=== PATIENT | female | born 1955 | race Caucasian/White ===

== ENCOUNTER 2019-05-07 08:16 | Emergency (ER) | payer BC ==
--- OUTSIDE RECORDS SUMMARY | 2019-05-07 08:21 | XMS REPORT | Continuity of Care Document ---
:1955 External Reference #:[id number] Author Name JEREMY Coelho (transmitted by agent of provider Rachid Salvador) Address [address] [address] Care Team Providers Name Role Phone Chacha Reddy MD - Internal Care Team Information Log Data Technician [phone] Medicine Problems Active Problems Provider Date Polyp of nasal cavity and/or nasal JEREMY Coelho Onset: 02/19 sinus Chronic sinusitis JEREMY Coelho Onset: 08/14/2018 Allergic rhinitis Rachid Salvador MD Onset: 08/27/2015 Allergic rhinitis due to pollen Rachid Salvador MD Onset: 08/27/2015 Social History Type Date Description Comments Sex Unknown Tobacco Use Start: Unknown Never Smoked Cigarettes Smoking Status Reviewed: 05/02/19 Never Smoked Cigarettes Tobacco Use Start: Unknown Patient has never smoked Allergies, Adverse Reactions, Alerts Description No Known Drug Allergies Medications Active Medications SIG Qnty Indications Ordering Provider Date Augmentin take one 28tabs J32.9 Rachid Quinn 05/02/2019 875-125mg tablet by MD [place] Tablets mouth twice a day x14 days Prednisone take 3 tablets 18tabs J32.9 aRchid Quinn 05/02/2019 10mg Tablets by mouth twice MD [place] a day x3 days. take with food. Xhance Use 1 Spencer In 16units J30.1 Ronen Carver, 02/19/2019 93mcg/Act Exhu Each Nostril 2 RPA-C Times Daily. Montelukast Sodium take one 30tabs J30.1 Rachid Quinn 01/22/2019 10mg tablet by MD [place] Tablets mouth daily in the evening Azelastine HCL (Nasal) instill 2 30ml J30.1 Rachid Quinn 11/20/2018 sprays into MD [place] 137mcg/Spencer Solution each nostril 1-2x daily Citracal Plus Unknown Tablets Biotin Unknown 5000mcg Capsules B-12 (Methylcobalamin) Unknown D3 Adult Unknown 1000Unit Chewtabs Multivitamin Adult Unknown Levocetirizine Take One 30tabs Ronen Carver, Dihydrochloride Tablet By JEREMY 5mg Mouth Once Tablets Daily as Needed Losartan Potassium Unknown 50mg Tablets Medications Administered in Office Medication SIG Qnty Indications Ordering Provider Date Allergy Injection 2 Or More Rachid Salvador MD 04/25/2019 Injection Allergy Injection 2 Or More Rachid Salvador MD 04/11/2019 Injection Allergy Injection 2 Or More Rachid Salvador MD 03/28/2019 Injection Allergy Injection 2 Or More Rachid Salvador MD 03/14/2019 Injection Allergy Injection 2 Or More Rachid Salvador MD 03/02/2019 Injection Allergy Injection 2 Or More Rachid Salvador MD 02/14/2019 Injection Allergy Injection 2 Or More Rachid Salvador MD 01/31/2019 Injection Allergy Injection 2 Or More Rachid Salvador MD 01/17/2019 Injection Allergy Injection 2 Or More Rachid Salvador MD 01/03/2019 Injection Allergy Injection 2 Or More Rachid Salvador MD 12/20/2018 Injection Allergy Injection 2 Or More Rachid Salvador MD 12/06/2018 Injection Allergy Injection 2 Or More Rachid Salvador MD 11/20/2018 Injection Allergy Injection 2 Or More Rachid Salvador MD 11/08/2018 Injection Allergy Injection 2 Or More Rachid Salvador MD 10/25/2018 Injection Allergy Injection 2 Or More Rachid Salvador MD 10/11/2018 Injection Allergy Injection 2 Or More Rachid Salvador MD 09/27/2018 Injection Allergy Injection 2 Or More Rachid Salvador MD 09/13/2018 Injection Allergy Injection 2 Or More Rachid Salvador MD 08/28/2018 Injection Allergy Injection 2 Or More Rachid Salvador MD 08/14/2018 Injection Allergy Injection 2 Or More Rachid Salvador MD 08/09/2018 Injection Allergy Injection 2 Or More Rachid Salvador MD 08/02/2018 Injection Allergy Injection 2 Or More Rachid Salvador MD 07/26/2018 Injection Allergy Injection 2 Or More Rachid Salvador MD 07/12/2018 Injection Allergy Injection 2 Or More Rachid Salvador MD 06/26/2018 Injection Allergy Injection 2 Or More Rachid Salvador MD 06/14/2018 Injection Allergy Injection 2 Or More Rachid Salvador MD 06/07/2018 Injection Allergy Injection 2 Or More Rachid Salvador MD 05/31/2018 Injection Allergy Injection 2 Or More Rachid Salvador MD 05/19/2018 Injection Allergy Injection 2 Or More Rachid Salvador MD 05/10/2018 Injection Allergy Injection 2 Or More Rachid Salvador MD 05/03/2018 Injection Allergy Injection 2 Or More Rachid Salvador MD 04/28/2018 Injection Allergy Injection 2 Or More Rachid Salvador MD 04/19/2018 Injection Allergy Injection 2 Or More Rachid Salvador MD 04/05/2018 Injection Allergy Injection 2 Or More Rachid Salvador MD 03/22/2018 Injection Allergy Injection Single Rachid Salvador MD 03/08/2018 Injection Allergy Injection 2 Or More Rachid Salvador MD 02/22/2018 Injection Allergy Injection 2 Or More Rachid Salvador MD 02/10/2018 Injection Allergy Injection 2 Or More Rachid Salvador MD 01/25/2018 Injection Allergy Injection 2 Or More Rachid Salvador MD 01/13/2018 Injection Allergy Injection 2 Or More Rachid Salvador MD 12/30/2017 Injection Allergy Injection 2 Or More Rachid Salvador MD 12/07/2017 Injection Allergy Injection 2 Or More Rachid Salvador MD 11/23/2017 Injection Allergy Injection 2 Or More Rachid Salvador MD 11/07/2017 Injection Allergy Injection 2 Or More Rachid Salvador MD 10/26/2017 Injection Allergy Injection 2 Or More Rachid Salvador MD 10/12/2017 Injection Allergy Injection 2 Or More Rachid Salvador MD 09/26/2017 Injection Allergy Injection 2 Or More Rachid Salvador MD 09/14/2017 Injection Allergy Injection 2 Or More Rachid Salvador MD 08/31/2017 Injection Allergy Injection 2 Or More Rachid Salvador MD 08/15/2017 Injection Allergy Injection 2 Or More Rachid Salvador MD 07/18/2017 Injection Allergy Injection 2 Or More Rachid Salvador MD 06/24/2017 Injection Allergy Injection 2 Or More Rachid Salvador MD 05/25/2017 Injection Allergy Injection 2 Or More Rachid Salvador MD 05/11/2017 Injection Allergy Injection 2 Or More Rachid Salvador MD 04/27/2017 Injection Allergy Injection 2 Or More Rachid Salvador MD 04/13/2017 Injection Allergy Injection 2 Or More Rachid Salvador MD 03/28/2017 Injection Allergy Injection 2 Or More Rachid Salvador MD 03/09/2017 Injection Allergy Injection 2 Or More Rachid Salvador MD 03/02/2017 Injection Allergy Injection 2 Or More Rachid Salvador MD 02/23/2017 Injection Allergy Injection 2 Or More Rachid Salvador MD 02/16/2017 Injection Allergy Injection 2 Or More Rachid Salvador MD 02/09/2017 Injection Allergy Injection 2 Or More Rachid Salvador MD 02/02/2017 Injection Allergy Injection 2 Or More Rachid Salvador MD 01/26/2017 Injection Allergy Injection 2 Or More Rachid Salvador MD 01/19/2017 Injection Allergy Injection 2 Or More Rachid Salvador MD 01/14/2017 Injection Allergy Injection 2 Or More Injection 1 01/14/2017 Injection Allergy Injection 2 Or More Rachid Salvador MD 01/10/2017 Injection Allergy Injection 2 Or More Rachid Salvador MD 01/03/2017 Injection Allergy Injection 2 Or More Rachid Salvador MD 12/27/2016 Injection Allergy Injection 2 Or More Rachid Salvador MD 12/20/2016 Injection Allergy Injection 2 Or More Rachid Salvador MD 12/13/2016 Injection Allergy Injection 2 Or More Rachid Salvador MD 12/06/2016 Injection Allergy Injection 2 Or More Rachid Salvador MD 11/22/2016 Injection Allergy Injection 2 Or More Rachid Salvador MD 11/08/2016 Injection Allergy Injection 2 Or More Rachid Salvador MD 10/27/2016 Injection Allergy Injection 2 Or More Rachid Salvador MD 10/13/2016 Injection Allergy Injection 2 Or More Rachid Salvador MD 09/29/2016 Injection Allergy Injection 2 Or More Rachid Salvador MD 09/15/2016 Injection Allergy Injection 2 Or More Rachid Salvador MD 09/01/2016 Injection Allergy Injection 2 Or More Rachid Salvador MD 08/18/2016 Injection Allergy Injection 2 Or More Rachid Salvador MD 08/02/2016 Injection Allergy Injection 2 Or More Rachid Salvador MD 07/19/2016 Injection Allergy Injection 2 Or More Rachid Salvador MD 07/05/2016 Injection Allergy Injection 2 Or More Rachid Salvador MD 06/21/2016 Injection Allergy Injection 2 Or More Rachid Salvador MD 06/07/2016 Injection Allergy Injection 2 Or More Rachid Salvador MD 05/26/2016 Injection Allergy Injection 2 Or More Rachid Salvador MD 05/12/2016 Injection Allergy Injection 2 Or More Rachid Salvador MD 04/28/2016 Injection Allergy Injection 2 Or More Rachid Salvador MD 04/12/2016 Injection Allergy Injection 2 Or More Rachid Salvador MD 03/26/2016 Injection Allergy Injection 2 Or More Rachid Salvador MD 03/03/2016 Injection Allergy Injection 2 Or More Rachid Salvador MD 02/18/2016 Injection Allergy Injection 2 Or More Rachid Salvador MD 02/04/2016 Injection Allergy Injection 2 Or More Rachid Salvador MD 01/21/2016 Injection Allergy Injection 2 Or More Rachid Salvador MD 01/02/2016 Injection Allergy Injection 2 Or More Rachid Salvador MD 12/17/2015 Injection Allergy Injection 2 Or More Rachid Salvador MD 12/03/2015 Injection Allergy Injection 2 Or More Rachid Salvador MD 11/19/2015 Injection Allergy Injection 2 Or More Rachid Salvador MD 11/05/2015 Injection Allergy Injection 2 Or More Rachid Salvador MD 10/24/2015 Injection Allergy Injection 2 Or More Rachid Salvador MD 10/10/2015 Injection Allergy Injection 2 Or More Rachid Salvador MD 09/26/2015 Injection Allergy Injection 2 Or More Rachid Salvador MD 09/12/2015 Injection Immunizations Description No Information Available Vital Signs Date Vital Result Comment 04/02/2019 11:12am BP Systolic 108 mmHg BP Diastolic 80 mmHg Height 66 inches 5'6" Weight 193.00 lb BMI (Body Mass Index) 31.1 kg/m2 Heart Rate 80 /min Respiratory Rate 18 /min O2 % BldC Oximetry 99 % 02/19/2019 2:13pm BP Systolic 120 mmHg BP Diastolic 72 mmHg Height 66 inches 5'6" Weight 193.00 lb BMI (Body Mass Index) 31.1 kg/m2 Heart Rate 76 /min Respiratory Rate 16 /min O2 % BldC Oximetry 99 % Results Description No Information Available Procedures Date Code Description Status 04/26/2019 33619 Allergy Antigens Single Or Multiple Completed 04/25/2019 67719 Allergy Injection 2 Or More Completed 04/11/2019 86823 Allergy Injection 2 Or More Completed 03/28/2019 43920 Allergy Injection 2 Or More Completed 03/14/2019 33544 Allergy Injection 2 Or More Completed 03/02/2019 51242 Allergy Injection 2 Or More Completed 02/14/2019 62407 Allergy Injection 2 Or More Completed 01/31/2019 74448 Allergy Injection 2 Or More Completed 01/17/2019 75518 Allergy Injection 2 Or More Completed 01/03/2019 43019 Allergy Injection 2 Or More Completed 12/20/2018 05393 Allergy Injection 2 Or More Completed 12/07/2018 15456 Allergy Antigens Single Or Multiple Completed 12/06/2018 31065 Allergy Injection 2 Or More Completed 11/20/2018 08485 Allergy Injection 2 Or More Completed 11/08/2018 98812 Allergy Injection 2 Or More Completed Medical Devices Description No Information Available Encounters Type Date Location Provider Dx Diagnosis Office Visit 05/02/2019 Melinda Pérez32.9 Chronic sinusitis, 9:30a [place], unspecified RPA-C J30.1 Allergic rhinitis due to pollen J30.89 Other allergic rhinitis Office Visit 04/02/2019 11:00a [place] Ruma S. Fenstermacher, J30.1 Allergic rhinitis RPA-C due to pollen J30.89 Other allergic rhinitis J33.9 Nasal polyp, unspecified Office Visit 02/19/2019 2:00p [place] Ruma S. Fenstermacher, J30.1 Allergic rhinitis RPA-C due to pollen J30.89 Other allergic rhinitis J33.9 Nasal polyp, unspecified Office Visit 01/22/2019 3:30p [place] Ruma S. Fenstermacher, J30.1 Allergic rhinitis RPA-C due to pollen J30.89 Other allergic rhinitis J32.9 Chronic sinusitis, unspecified Office Visit 11/20/2018 11:00a [place] Ruma S. Fenstermacher, J30.1 Allergic rhinitis RPA-C due to pollen J30.89 Other allergic rhinitis Assessments Date Code Description Provider 05/02/2019 J32.9 Chronic sinusitis, unspecified Ruma S. [place]acher, RPA- C 05/02/2019 J30.1 Allergic rhinitis due to pollen Ruma S. [place], RPA -C 05/02/2019 J30.89 Other allergic rhinitis Ruma S. [place]acher, RPA-C 04/26/2019 J30.1 Allergic rhinitis due to pollen Rachid Salvador MD 04/26/2019 J30.89 Other allergic rhinitis Rachid Salvador MD 04/25/2019 J30.1 Allergic rhinitis due to pollen Rachid Salvador MD 04/25/2019 J30.89 Other allergic rhinitis Rachid Salvador MD 04/11/2019 J30.1 Allergic rhinitis due to pollen Rachid Salvador MD 04/11/2019 J30.89 Other allergic rhinitis Rachid Salvador MD 04/02/2019 J30.1 Allergic rhinitis due to pollen Ruma S. [place]ermacher, RPA -C 04/02/2019 J30.89 Other allergic rhinitis Ruma S. [place]ermacher, RPA-C 04/02/2019 J33.9 Nasal polyp, unspecified Ruma S. [place]ermacher, RPA-C 03/28/2019 J30.1 Allergic rhinitis due to pollen Rachid Salvador MD 03/28/2019 J30.89 Other allergic rhinitis Rachid Salvador MD 03/14/2019 J30.1 Allergic rhinitis due to pollen Rachid Salvador MD 03/14/2019 J30.89 Other allergic rhinitis Rachid Salvador MD 03/02/2019 J30.1 Allergic rhinitis due to pollen Rachid Salvador MD 03/02/2019 J30.89 Other allergic rhinitis Rachid Salvador MD 02/19/2019 J30.1 Allergic rhinitis due to pollen Ruma S. [place]ermacher, RPA -C 02/19/2019 J30.89 Other allergic rhinitis Ruma S. Fenstermacher, RPA-C 02/19/2019 J33.9 Nasal polyp, unspecified Ruma S. Fenstermacher, RPA-C 02/14/2019 J30.1 Allergic rhinitis due to pollen Rachid Salvador MD 02/14/2019 J30.89 Other allergic rhinitis Rachid Salvador MD 01/31/2019 J30.1 Allergic rhinitis due to pollen Rachid Salvador MD 01/31/2019 J30.89 Other allergic rhinitis Rachid Salvador MD 01/25/2019 J30.1 Allergic rhinitis due to pollen Ruma S. Fenstermacher, RPA -C 01/22/2019 J30.1 Allergic rhinitis due to pollen Ruma S. [place]ermacher, RPA -C 01/22/2019 J30.89 Other allergic rhinitis Ruma S. [place]ermacher, RPA-C 01/22/2019 J32.9 Chronic sinusitis, unspecified Ruma S. [place]ermacher, RPA- C 01/17/2019 J30.1 Allergic rhinitis due to pollen Rachid Salvador MD 01/17/2019 J30.89 Other allergic rhinitis Rachid Salvador MD 01/03/2019 J30.1 Allergic rhinitis due to pollen Rachid Salvador MD 01/03/2019 J30.89 Other allergic rhinitis Rachid Salvador MD 12/20/2018 J30.1 Allergic rhinitis due to pollen Rachid Salvador MD 12/20/2018 J30.89 Other allergic rhinitis Rachid Salvador MD 12/07/2018 J30.1 Allergic rhinitis due to pollen Rachid Salvador MD 12/07/2018 J30.89 Other allergic rhinitis Rachid Salvador MD 12/06/2018 J30.1 Allergic rhinitis due to pollen Rachid Salvador MD 12/06/2018 J30.89 Other allergic rhinitis Rachid Salvador MD 11/20/2018 J30.1 Allergic rhinitis due to pollen Ruma Fuentes, [facility] 11/20/2018 J30.1 Allergic rhinitis due to pollen Rachid Salvador MD 11/20/2018 J30.89 Other allergic rhinitis Ruma Fuentes, [facility] 11/20/2018 J30.89 Other allergic rhinitis Rachid Salvador MD 11/08/2018 J30.1 Allergic rhinitis due to pollen Rachid Salvador MD 11/08/2018 J30.89 Other allergic rhinitis Rachid Salvador MD Plan of Treatment Future Appointment(s):05/07/2019 11:25 am - Injection 1 at [id number]/02/2019 - Ruma Fuentes, [facility]-CJ32.9 Chronic sinusitis, unspecifiedNew Medication: Augmentin 875-125 mg - take one tablet by mouth twice a day x14 daysPrednisone 10 mg - take 3 tablets by mouth twice a day x3 days. take with food.Comments: Patient with exacerbation of her chronic sinusitis. I will give Augmentin and short course of Prednisone. Continue daily medications as prescribed. I will refer to [facility] for further evaluation andmanagement of chronic sinusitis.Follow up:[facility] Allergic rhinitis due to pollenComments:Continue Xhance nasal spray, Singulair and Levocetirizine as prescribed. Continue allergy immunotherapy as scheduled.J30.89 Other allergic rhinitis Functional Status Description No Information Available Mental Status Description No Information Available Referrals Description No Information Available
--- OUTSIDE RECORDS SUMMARY | 2019-05-07 08:21 | XMS REPORT | Continuity of Care Document ---
:1955 External Reference #:[id number] Author Name Alicia Lopez M.D. 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 Onset: extremity Arthroplasty of knee Alicia Lopez M.D. Onset: 04/18/2017 Localized, primary osteoarthritis Alicia Lopez M.D. Onset: 02/18/2016 Social History Type Date Description Comments Sex Unknown ETOH Use Rarely consumes alcohol Tobacco Use Start: Unknown Patient has never smoked Smoking Status Reviewed: 03/23/19 Patient has never smoked Exercise Type/Frequency Exercises regularly Allergies, Adverse Reactions, Alerts Active Allergies Reaction Severity Comments Date Lisinopril stuffy throat 01/03/2014 Inactive Allergies NKDA 07/20/2013 Medications Active Medications SIG Qnty Indications Ordering Date Provider Amoxicillin take 4 pills, 2 g 4caps Alicia Lopez, 06/22/2017 500mg Capsules 1 hour before M.D. dental or gi procedure Compression Stockings 1units M25.562 Alicia Lopez, 03/28/2017 [facility] [place] M.D. Multivitamins 1 by mouth every Unknown Capsules day Vitamin B 12 Unknown 500mcg Calcium daily Unknown 600mg Tablets Biotin daily Unknown 1mg Capsules Levocetirizine 1 by mouth every Unknown Dihydrochloride day 5mg Tablets Tylenol 8 Hour 1 by mouth three Unknown 650mg times a day as Tablets ER needed for pain Vitamin D3 1 chew by mouth Unknown 1000Unit once a day Chewtabs Qnasl two sprays each Unknown 80mcg/Act Aerosol nostril once daily. Losartan Potassium 1 by mouth every Unknown 50mg day Tablets Montelukast Sodium 1 by mouth every Unknown 10mg day Tablets Medications Administered in Office Medication SIG Qnty Indications Ordering Provider Date Synvisc Or Synvisc-One Alicia Lopez M.D. 11/19/2016 Injection 1 MG Injection Synvisc Or Synvisc-One Alicia Lopez M.D. 11/12/2016 Injection 1 MG Injection Synvisc Or Synvisc-One Alicia Lopez M.D. 11/05/2016 Injection 1 MG Injection Depomedrol 40MG Alicia Lopez M.D. 08/20/2016 Injection Depomedrol 40MG Alicia Lopez M.D. 05/24/2016 Injection Depomedrol 40MG Alicia Lopez M.D. 02/18/2016 Injection Depomedrol 40MG Grzegorz Cornell M.D. 09/16/2015 Injection Celestone 3 mg and 3mg Mitzy Kelly, 01/28/2012 Injection M.D. Celestone 3 mg and 3mg Mitzy Kelly, 01/28/2012 Injection M.D. Immunizations Description No Information Available Vital Signs Date Vital Result Comment 03/23/2019 2:18pm Height 66 inches 5'6" Weight 195.00 lb Heart Rate 64 /min BP Systolic Sitting 128 mmHg BP Diastolic Sitting 88 mmHg Respiratory Rate 16 /min Pain Level 0 BMI (Body Mass Index) 31.5 kg/m2 06/13/2017 4:07pm Height 66 inches 5'6" Weight 198.25 lb Heart Rate 68 /min BP Systolic Sitting 196 mmHg BP Diastolic Sitting 93 mmHg Respiratory Rate 14 /min Pain Level 1 BMI (Body Mass Index) 32.0 kg/m2 Results Description No Information Available Procedures Description No Information Available Medical Devices Description No Information Available Encounters Description No Information Available Assessments Date Code Description Provider 03/23/2019 Z47.1 Aftercare following joint replacement surgery Alicia Lopez M.D. 03/23/2019 Z96.652 Presence of left artificial knee joint Alicia Lopez M.D. Plan of Treatment 03/23/2019 - Alicia Lopez M.D.Z47.1 Aftercare following joint replacement surgeryFollow up:Follow up: 2 years with repeat x-raysZ96.652 Presence of left artificial knee joint Functional Status Description No Information Available Mental Status Description No Information Available Referrals Description No Information Available
--- OUTSIDE RECORDS SUMMARY | 2019-05-07 08:21 | XMS REPORT | Continuity of Care Document ---
:1955 External Reference #:[id number] Author Name JEREMY Coelho (transmitted by agent of provider Rachid Salvador) Address [address] [address] Care Team Providers Name Role Phone Chacha Reddy MD - Internal Care Team Information Surg Nurse Medicine Problems Active Problems Provider Date Polyp of nasal cavity and/or nasal JEREMY Coelho Onset: 02/19 sinus Chronic sinusitis JEREMY Coelho Onset: 08/14/2018 Allergic rhinitis Rachid Salvador MD Onset: 08/27/2015 Allergic rhinitis due to pollen Rachid Salvador MD Onset: 08/27/2015 Social History Type Date Description Comments Sex Unknown Tobacco Use Start: Unknown Never Smoked Cigarettes Smoking Status Reviewed: 04/02/19 Never Smoked Cigarettes Tobacco Use Start: Unknown Patient has never smoked Allergies, Adverse Reactions, Alerts Description No Known Drug Allergies Medications Active Medications SIG Qnty Indications Ordering Provider Date Xhance Use 1 [place] In 16units J30.1 Ronen Carver, 02/19/2019 93mcg/Act Exhu Each Nostril 2 RPA-C Times Daily. Montelukast Sodium take one 30tabs J30.1 Rachid Quinn 01/22/2019 10mg tablet by [facility] [place] Tablets mouth daily in the evening Azelastine HCL (Nasal) instill 2 30ml J30.1 Rachid Quinn 11/20/2018 sprays into [facility] [place] 137mcg/[place] Solution each nostril 1-2x daily Citracal Plus [...] 10/26/2017 Injection Allergy Injection 2 Or More Rachdi Salvador MD 10/12/2017 Injection Allergy Injection 2 [...] Information Available Procedures Date Code Description Status 03/28/2019 67127 Allergy Injection 2 Or More Completed 03/14/2019 41585 Allergy Injection 2 Or More Completed 03/02/2019 02377 Allergy Injection 2 Or More Completed 02/14/2019 24588 Allergy Injection 2 Or More Completed 01/31/2019 66786 Allergy Injection 2 Or More Completed 01/17/2019 28520 Allergy Injection 2 Or More Completed 01/03/2019 63662 Allergy Injection 2 Or More Completed 12/20/2018 63377 Allergy Injection 2 Or More Completed 12/07/2018 52688 Allergy Antigens Single Or Multiple Completed 12/06/2018 46356 Allergy Injection 2 Or More Completed 11/20/2018 53818 Allergy Injection 2 Or More Completed 11/08/2018 82088 Allergy Injection 2 Or More Completed 10/25/2018 24159 Allergy Injection 2 Or More Completed 10/11/2018 15896 Allergy Injection 2 Or More Completed Medical Devices Description No Information Available Encounters Type Date Location Provider Dx Diagnosis Office Visit 04/02/2019 Melinda Pérez30.1 Allergic rhinitis due 11:00a [place], RPA-C to pollen J30.89 Other allergic rhinitis J33.9 Nasal polyp, unspecified Office Visit 02/19/2019 2:00p Beto Larios30.1 Allergic rhinitis RPA-C due to pollen J30.89 Other allergic rhinitis J33.9 Nasal polyp, unspecified Office Visit 01/22/2019 3:30p Beto Larios30.1 Allergic rhinitis RPA-C due to pollen J30.89 Other allergic rhinitis J32.9 Chronic sinusitis, unspecified Office Visit 11/20/2018 11:00a [place] Ruma S. Fenstermacher, J30.1 Allergic rhinitis RPA-C due to pollen J30.89 Other allergic rhinitis Assessments Date Code Description Provider 04/02/2019 J30.1 Allergic rhinitis due to pollen [...] RPA-C 01/22/2019 J32.9 Chronic sinusitis, unspecified Ruma Fuentes RPA- C 01/17/2019 J30.1 Allergic rhinitis due [...] due to pollen Rachid Salvador MD 11/20/2018 J30.1 Allergic rhinitis due to pollen HOWARD CoelhoC 11/20/2018 J30.89 Other allergic rhinitis MAKAYLA CoelhoC 11/20/2018 J30.89 Other allergic sandra Salvador MD 11/08/2018 J30.1 Allergic rhinitis due to pollen Rachid Salvador MD 11/08/2018 J30.89 Other allergic rhinitis Rachid Salvador MD 10/25/2018 J30.1 Allergic rhinitis due to pollen Rachid Salvador MD 10/25/2018 J30.89 Other allergic rhinitis Rachid Salvador MD 10/11/2018 J30.1 Allergic rhinitis due to pollen Rachid Salvador MD 10/11/2018 J30.89 Other allergic rhinitis Rachid Salvador MD Plan of Treatment Future Appointment(s):05/02/2019 9:30 am - MAKAYLA CoelhoC at [facility]/11/2019 11:35 am - Injection 1 at [facility]304/02/2019 - Ruma MarshallHalle Fuentes, RPA-CJ30.1 Allergic rhinitis due to pollenComments:Patient with chronic nasal congestion and post nasal drip. She has been unable to tell if her symptoms improved with Xhance, because she came down with a cold since her last office visit. I will have her continue current medications and re-evaluate in 6 weeks. If no improvement, will plan to refer to ENT based on CT results. This patient was previously discussed with Dr. Salvador.Follow up:6 weeks.J30.89 Other allergic albejovtV74.9 Nasal polyp, unspecifiedComments:CT of the sinuses shows mucous retention cyst versus polypoid mucosal thickening of the maxillary sinuses. I reviewed this patient with Dr. Salvador who has recommended trial of Xhance nasal spray. I willre-evaluate in 6 weeks and if no improvement, will plan to refer to ENT. Continue Singulair and Xyzal as prescribed. Continue immunotherapy as scheduled.Follow up:6 weeks. Functional Status Description No Information Available Mental Status Description No Information Available Referrals Description No Information Available
--- NOTE | 2019-05-07 08:33 | UC ---
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 Left subtalar fusion with tibial bone graft @ [facility] [place] 01/28/2014. 2013- left knee and tendon SX with DVT post SX ,. 1996, 1991, 1988 c [facility]S [facility] [place]. 1987 , 1993, 1994 SEVERAL D&Cs.tonsilectomy, right carpal tunnel, hysterectomy, sleeve gastrectomy. 2000 A[facility]ATION [facility] [place]. GASTERECTOMY-2014. 2002 HYSTERECTOMY [facility] [place]. 1983 & 1984 carpal tunnel-RIGHT [place]. 1989 LT KNEE SCOPE [place]. 1966 T& A. 1980 WISDOM TEETH - Social History Alcohol Use: Occasionally Alcohol Amount: 2 OZ MAYBE MONTHLY Substance Use Type: None Smoking Status (MU): Never Smoked Tobacco Have You Smoked in the Last Year: No - Immunization History Most Recent Influenza Vaccination: 01/2017 Most Recent Tetanus Shot: RECENTLY WITHIN THE LAST FEW YEARS Most Recent Pneumonia Vaccination: ? MAYBE 2011 Discharge ED - Discharge Plan Referrals: Chacha Reddy MD [Primary Care Provider] -
[2019-05-07 08:46] VITALS: BP 129/85
--- NOTE | 2019-05-07 08:51 | UC ---
Hand/Wrist HPI - HPI Summary HPI Summary: 64-year-old woman comes in with chief complaint of left wrist pain. 3 days ago on May 04, 2019 patient slipped and fell onto her left hand and knees. Her knees have improved. Her left wrist has ecchymosis and continues to hurt. She does have some tingling that goes into all 5 fingers. Pain is worse with motion. No complaint of weakness but there is increased pain with movement. She has been using a splint that she had but feels there is really been no improvement in the pain. She has taken acetaminophen for the pain. - History Of Current Complaint Chief Complaint: UCUpperExtremity Stated Complaint: WRIST INJURY Time Seen by Provider: 05/07/19 08:33 Pain Intensity: 3 - Allergies/Home Medications Allergies/Adverse Reactions: Allergies Allergy/AdvReac Type Severity Reaction Status Date / Time lisinopril Allergy Coughing Verified 05/07/19 08:46 Home Medications: Home Medications Amoxicillin/Clavulanate TAB* [Augmentin TAB 875*] 875 mg PO BID 05/07/19 [ History Confirmed 05/07/19] PMH/Surg Hx/FS Hx/Imm Hx Previously Healthy: Yes Cardiovascular History: Hypertension Respiratory History: Asthma Other History Of: Anticoagulant Therapy - 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 Left subtalar fusion with tibial bone graft @ [facility] 01/28/2014. 2013- left knee and tendon SX with DVT post SX ,. 1996, 1991, 1988 c [facility]S [facility]. 1987 , 1993, 1994 SEVERAL D&Cs.tonsilectomy, right carpal tunnel, hysterectomy, sleeve gastrectomy. 2000 [facility]. GASTERECTOMY-2014. 2002 HYSTERECTOMY [facility] [place]. 1983 & 1984 carpal tunnel-RIGHT [place]. 1990 LT KNEE SCOPE [place]. 1966 T& A. 1979 WISDOM TEETH - Social History Alcohol Use: Occasionally Alcohol Amount: 2 OZ MAYBE MONTHLY Substance Use Type: None Smoking Status (MU): Never Smoked Tobacco Have You Smoked in the Last Year: No - Immunization History Most Recent Influenza Vaccination: 01/2017 Most Recent Tetanus Shot: RECENTLY WITHIN THE LAST FEW YEARS Most Recent Pneumonia Vaccination: ? MAYBE 2011 Review of Systems All Other Systems Reviewed And Are Negative: Yes Constitutional: Positive: Negative Skin: Positive: Bruising - SEE HPI Eyes: Positive: Negative ENT: Positive: Negative Respiratory: Positive: Negative Cardiovascular: Positive: Negative Gastrointestinal: Positive: Negative Motor: Positive: Other - SEE HPI Neurovascular: Positive: Other - SEE HPI Musculoskeletal: Positive: Other: - SEE HPI Neurological: Positive: Other - SEE HPI Psychological: Positive: Negative Is Patient Immunocompromised?: No Physical Exam Triage Information Reviewed: Yes Appearance: Well-Appearing, No Pain Distress, Well-Nourished Vital Signs: Initial Vital Signs Temp 97.7 F 05/07/19 08:43 Pulse 71 05/07/19 08:43 Resp 18 05/07/19 08:43 BP 129/85 05/07/19 08:43 Pulse Ox 100 05/07/19 08:43 Vital Signs Reviewed: Yes Eye Exam: Normal Eyes: Positive: Conjunctiva Clear Neck: Positive: Supple Respiratory: Positive: No respiratory distress Musculoskeletal: Positive: Other: - Tender to palpation on the palmar aspect of the left wrist. There also is some snuffbox tenderness. Patient reports some tingling in the fingers. Capillary refill is normal. Fingers and wrist and elbow have full range of motion. There is increased pain with range of motion of the left wrist and fingers. Normal strength. Neurological: Positive: Alert Psychological: Positive: Age Appropriate Behavior Skin: Positive: Other - Ecchymosis in the left wrist at the base of the left thumb on the palmar aspect. Hand/Wrist Course/Dx - Course Course Of Treatment: Facility Mechanic: Gama Krause F ([id number]) Asset Protection Assistant: BELÉN ( BELÉN) Report Date: 05/07/2019 09:02:00 Report Status: Final ====== Start of Report Content Patient Name: MOLLY CORNEJO Medical Record#: [id number] Ordering Physician: David CHIN Acct.#: [id number] : Age: 64 Sex: F Location: [facility] Exam Date: 05/07/19832 ADM Status: REG ER Order Information: WRIST LEFT 3+ VWS Accession Number: [id number] CPT: 02541 INDICATION: Left wrist injury. TECHNIQUE: 3 views of the left wrist were obtained. FINDINGS: The bones appear osteopenic and in normal alignment. No fracture is seen. Joint spaces appear maintained. IMPRESSION: NO EVIDENCE FOR FRACTURE. IF THE PATIENT'S SYMPTOMS PERSIST RECOMMEND FOLLOW-UP IMAGING. < Electronically signed by Gama Krause MD in OV> 05/07/19857 Dictated By: Gama Krause MD Dictated Date/Time: 05/07/19854 Transcribed Date/Time: 854 Copy to: CC:Chacha Reddy MD; David CHIN; Yrn Locke MD Imaging - [facility] Imaging - [facility] [address] [place] [address] ph ([phone]) ph ([phone]) ph ([phone]) End of Report Content I discussed the x-rays with the patient. No fracture seen. Because the patient reports essentially no improvement in the injury and does have some snuffbox tenderness patient was placed in a thumb spica splint by nursing. Patient neurovascular intact after placement of the thumb spica splint. Also because of the lack of improvement and tenderness in the snuffbox patient will follow-up with orthopedics or sports medicine this week. - Differential Dx/Diagnosis Provider Diagnosis: Left wrist sprain Discharge ED - Sign-Out/Discharge Documenting (check all that apply): Patient Departure All imaging exams completed and their final reports reviewed: Yes - Discharge Plan Condition: Stable Disposition: HOME Patient Education Materials: Wrist Sprain (ED) Referrals: Chacha Reddy MD [Primary Care Provider] - [facility] [Provider Group] Miguel Rm MD [Medical Doctor] - Additional Instructions: FOLLOW UP WITH ORTHOPEDICS OR SPORTS MEDICINE. CALL TODAY TO ARRANGE FOLLOW UP. GET REEVALUATED SOONER IF NOT IMPROVED OR WORSE OR ANY QUESTIONS OR CONCERNS. - Billing Disposition and Condition Condition: STABLE Disposition: Home
== END 2019-05-07 09:27 | disposition home or self-care (01) ==
LOC: UCEAST 08:16
DX: S63.502A Unspecified sprain of left wrist, initial encounter (principal); I10 Essential (primary) hypertension; J45.909 Unspecified asthma, uncomplicated; Z86.718 Personal history of other venous thrombosis and embolism; Z79.01 Long term (current) use of anticoagulants; W01.0XXA Fall on same level from slipping, tripping and stumbling without subsequent striking against object, initial encounter; Y92.9 Unspecified place or not applicable; Z88.8 Allergy status to other drugs, medicaments and biological substances
CPT/HCPCS: 99212; G0463

== ENCOUNTER 2020-12-16 21:42 | Observation (INO) ==
[2020-12-16 22:43] LABS: ABS Eosinophils 0.1 10^3/ul (0-0.6); ABS Lymphocytes 1.3 10^3/ul (1.0-4.8); ABS Monocytes 0.8 10^3/ul (0-0.8); ABS Neutrophils 5.8 10^3/ul (1.5-7.7); Hematocrit 46 % (35-47); Hemoglobin 15.6 g/dL (12.0-16.0); Lymphocyte % 16.7 %; Mean Corpuscular HGB Conc 34 g/dL (31-36); Mean Corpuscular Hemoglobin 31 pg (27-31); Mean Corpuscular Volume 90 fL (80-97); Mean Platelet Volume 7.8 fL (7.4-10.4); Nucleated Red Blood Cells % 0.1; Platelet Count 184 10^3/uL (150-450); Red Blood Count 5.05 10^6 /uL (3.70-4.87); Red Cell Distribution Width 14 % (10-15); White Blood Count 7.9 10^3/uL (3.5-10.8)
[2020-12-16 23:10] LABS: Albumin 4.8 g/dL (3.2-5.2); Albumin/Globulin Ratio 1.9 (1-3); C Reactive Protein 4.14 mg/L (<8.01); Calcium 9.6 mg/dL (8.6-10.3); EGFR African American 86.4 (>60); EGFR Non-African American 71.4 (>60); Globulin 2.5 g/dL (2-4); Potassium 3.9 mmol/L (3.5-5.0); Total Bilirubin 0.6 mg/dL (0.2-1.0); Total Protein 7.3 g/dL (6.4-8.9)
[2020-12-16] MEDS ORDERED: Piperacillin/Tazobac ADVAN 3.375 GM in NS 0.9% 100 ml BAG 100 ML IV ONE (23:58)
[2020-12-17] MEDS ORDERED: Morphine 4 MG/ML VIAL (1 ml) IV ONE (00:48)
[2020-12-17] MEDS ORDERED: Piperacillin/Tazobac ADVAN 3.375 GM in NS 0.9% 100 ml BAG 100 ML IV ONE (01:07)
[2020-12-17] MEDS ORDERED: HYDROcodone/ACETAMIN 5/325 mg TAB PO PRN (01:07)
[2020-12-17] MEDS ORDERED: Zosyn per Pharmacy NOTE FOLLOW UP SCH (02:00)
[2020-12-17] MEDS: Enoxaparin 40 MG/0.4 ML SYR SUBCUT SCH ×2 (02:58→20:52)
[2020-12-17] MEDS: ZOSYN 3.375 GM Q8H per EXTENDED INFUSION IV SCH ×3 (03:47→20:52)
[2020-12-17 06:35] LABS: Hematocrit 42 % (35-47); Hemoglobin 14.2 g/dL (12.0-16.0); Mean Corpuscular HGB Conc 34 g/dL (31-36); Mean Corpuscular Hemoglobin 31 pg (27-31); Mean Corpuscular Volume 91 fL (80-97); Mean Platelet Volume 8.1 fL (7.4-10.4); Platelet Count 147 10^3/uL (150-450); Red Blood Count 4.58 10^6 /uL (3.70-4.87); Red Cell Distribution Width 14 % (10-15); White Blood Count 6.1 10^3/uL (3.5-10.8)
[2020-12-17 06:41] LABS: INR 1.12 (0.86-1.15)
[2020-12-17 06:51] LABS: Calcium 8.9 mg/dL (8.6-10.3); Potassium 3.8 mmol/L (3.5-5.0)
[2020-12-17 06:53] LABS: ABS Eosinophils 0.1 10^3/ul (0-0.6); ABS Lymphocytes 1.3 10^3/ul (1.0-4.8); ABS Monocytes 0.6 10^3/ul (0-0.8); ABS Neutrophils 4.1 10^3/ul (1.5-7.7); Eosinophil % 1.6 %; Lymphocyte % 20.8 %; Nucleated Red Blood Cells % 0.1
[2020-12-17 06:57] LABS: EGFR African American 95.9 (>60); EGFR Non-African American 79.3 (>60)
[2020-12-17] MEDS: Mometasone/Formoter 100/5 MDI INH SCH (08:52)
[2020-12-17] MEDS: Multivitamins/Minerals TAB PO SCH (08:52)
[2020-12-17] MEDS: Cholecalciferol (VIT D3) 1,000 unit TAB PO SCH (08:52)
[2020-12-17] MEDS: Calcium/Vitamin D TAB 250/125 TAB PO SCH (08:52)
[2020-12-17] MEDS ORDERED: [UNRECOGNIZED DRUG - REMARK] INTRANASAL SCH (09:00)
[2020-12-17] MEDS ORDERED: BIOTIN 5000 MCG PO SCH (09:00)
[2020-12-17] MEDS: AZELASTINE 0.1% BOTH NARES SCH (09:19)
[2020-12-17] MEDS ORDERED: Gadoteridol (CONTRAST) 279.3 MG/ML 10 ML IV ONE (12:07)
[2020-12-18] MEDS: ZOSYN 3.375 GM Q8H per EXTENDED INFUSION IV SCH ×3 (04:11→20:51)
[2020-12-18 06:21] LABS: ABS Eosinophils 0.1 10^3/ul (0-0.6); ABS Lymphocytes 1.3 10^3/ul (1.0-4.8); ABS Monocytes 0.6 10^3/ul (0-0.8); ABS Neutrophils 3.2 10^3/ul (1.5-7.7); Eosinophil % 1.6 %; Hematocrit 41 % (35-47); Hemoglobin 13.9 g/dL (12.0-16.0); Lymphocyte % 25.3 %; Mean Corpuscular HGB Conc 34 g/dL (31-36); Mean Corpuscular Hemoglobin 31 pg (27-31); Mean Corpuscular Volume 92 fL (80-97); Mean Platelet Volume 7.7 fL (7.4-10.4); Nucleated Red Blood Cells % 0.1; Platelet Count 141 10^3/uL (150-450); Red Blood Count 4.48 10^6 /uL (3.70-4.87); Red Cell Distribution Width 14 % (10-15); White Blood Count 5.1 10^3/uL (3.5-10.8)
[2020-12-18 06:35] LABS: Calcium 8.6 mg/dL (8.6-10.3); EGFR African American 100.6 (>60); EGFR Non-African American 83.1 (>60); Magnesium 2.2 mg/dL (1.9-2.7); Potassium 3.8 mmol/L (3.5-5.0)
[2020-12-18 08:44] LABS: C Reactive Protein 50.84 mg/L (<8.01)
[2020-12-18] MEDS: Cholecalciferol (VIT D3) 1,000 unit TAB PO SCH (09:15)
[2020-12-18] MEDS: Calcium/Vitamin D TAB 250/125 TAB PO SCH (09:15)
[2020-12-18] MEDS: Multivitamins/Minerals TAB PO SCH (09:15)
[2020-12-18] MEDS: BIOTIN 5 MG PO SCH (09:16)
[2020-12-18] MEDS: AZELASTINE 0.1% BOTH NARES SCH (09:16)
[2020-12-18] MEDS: Mometasone/Formoter 100/5 MDI INH SCH (09:17)
[2020-12-18] MEDS ORDERED: Buffered Lidocaine 1% SYRIN 1 ml INTRADERM ONE (14:40)
[2020-12-18] MEDS: Enoxaparin 40 MG/0.4 ML SYR SUBCUT SCH (20:51)
[2020-12-19 07:48] LABS: ABS Eosinophils 0.1 10^3/ul (0-0.6); ABS Lymphocytes 1.5 10^3/ul (1.0-4.8); ABS Monocytes 0.5 10^3/ul (0-0.8); ABS Neutrophils 2.3 10^3/ul (1.5-7.7); Eosinophil % 2.1 %; Hematocrit 40 % (35-47); Hemoglobin 13.7 g/dL (12.0-16.0); Lymphocyte % 33.7 %; Mean Corpuscular HGB Conc 35 g/dL (31-36); Mean Corpuscular Hemoglobin 31 pg (27-31); Mean Corpuscular Volume 90 fL (80-97); Mean Platelet Volume 8.2 fL (7.4-10.4); Nucleated Red Blood Cells % 0.1; Platelet Count 144 10^3/uL (150-450); Red Cell Distribution Width 14 % (10-15); White Blood Count 4.4 10^3/uL (3.5-10.8)
[2020-12-19 07:57] LABS: C Reactive Protein 31.52 mg/L (<8.01); Calcium 8.8 mg/dL (8.6-10.3); EGFR African American 97.4 (>60); EGFR Non-African American 80.5 (>60); Potassium 3.7 mmol/L (3.5-5.0)
[2020-12-19] MEDS: Calcium/Vitamin D TAB 250/125 TAB PO SCH (08:29)
[2020-12-19] MEDS: Multivitamins/Minerals TAB PO SCH (08:29)
[2020-12-19] MEDS: Cholecalciferol (VIT D3) 1,000 unit TAB PO SCH (08:29)
[2020-12-19] MEDS: BIOTIN 5 MG PO SCH (08:31)
[2020-12-19] MEDS: AZELASTINE 0.1% BOTH NARES SCH (08:33)
[2020-12-19] MEDS: Mometasone/Formoter 100/5 MDI INH SCH (08:34)
[2020-12-19] MEDS ORDERED: Potassium Chlor 20 meq TAB.ER PO ONE (08:51)
[2020-12-19] MEDS ORDERED: cefTRIAXone 2 GM ADDV.VIAL 2 GM in NS 0.9% 100 ml BAG 100 ML IV SCH (09:00)
[2020-12-19 11:26] VITALS: BP 155/88
== END 2020-12-19 14:10 | disposition home or self-care (01) ==
LOC: ED 21:42 → MED 21:42
PROVIDERS: ADMIT Internal Medicine; ATTEND Hospitalist

== ENCOUNTER 2023-01-20 06:01 | Observation (INO) ==
[~2023-01-20 06:01] MED LIST: Buffered Lidocaine 1% SYRIN 1 ml INTRADERM ONE; Lactated Ringers 1000 ml BAG 1,000 ML IV SCH
[2023-01-20] MEDS ORDERED: ceFAZolin 2 GM in NS PREMIX 2 GM/100 ML BAG IVPB ONE (06:12)
[2023-01-20 06:48] LABS: Rapid COVID-19 Molecular Undetected (Undetected)
[2023-01-20] MEDS ORDERED: Midazolam 2 mg/2 ml VIAL 1 mg/ml 2 ml VIAL (2 mg) ONE (07:18)
[2023-01-20] MEDS ORDERED: fentaNYL 100 mcg/2 ml 50 MCG/ML VIAL ONE (07:19)
[2023-01-20] MEDS ORDERED: Rocuronium 50 mg VIAL 10 mg/ml 5 ml VIAL (50 mg) ONE (07:30)
[2023-01-20] MEDS ORDERED: Propofol 10 MG/ML 20 ML BTL ONE (07:30)
[2023-01-20] MEDS ORDERED: ROPIVACAINE 5 MG/ML 30 ML BTL (0.5%) ONE (07:38)
[2023-01-20] MEDS ORDERED: Ondansetron 4 mg VIAL 2 MG/ML 2 ml VIAL ONE (08:03)
[2023-01-20] MEDS ORDERED: Dexamethasone IV 4 MG/ML VIAL 1 ml VIAL ONE (08:03)
[2023-01-20] MEDS ORDERED: HYDROmorphone 0.5 MG/0.5 ML SYRINGE ONE ×3 (08:34→10:14)
[2023-01-20] MEDS ORDERED: Morphine 2 MG/ML SYRINGE IV PRN (10:23)
[2023-01-20] MEDS ORDERED: Lactulose 30 ml UDC PO PRN (10:23)
[2023-01-20] MEDS ORDERED: Ondansetron 4 mg VIAL 2 MG/ML 2 ml VIAL IV PRN (10:23)
[2023-01-20] MEDS ORDERED: Magnesium Hydroxide LIQ 30 ML UDC PO PRN (10:23)
[2023-01-20] MEDS ORDERED: Ondansetron ODT 4 mg TAB 4 MG TAB PO PRN (10:23)
[2023-01-20] MEDS ORDERED: Prochlorperazine 5 mg/ml 2 ml VIAL (10 mg) IV PRN (10:28)
[2023-01-20] MEDS ORDERED: Naloxone 0.4 mg VIAL 0.4 mg/ml 1 ml VIAL IV PRN (10:28)
[2023-01-20] MEDS ORDERED: fentaNYL 100 mcg/2 ml 50 MCG/ML VIAL IV PRN (10:28)
[2023-01-20] MEDS ORDERED: Morphine 4 MG/ML VIAL (1 ml) ONE (10:45)
[2023-01-20] MEDS: Morphine 4 MG/ML VIAL (1 ml) IV PRN ×2 (10:47→10:59)
[2023-01-20] MEDS ORDERED: Lactated Ringers 1000 ml BAG 1,000 ML IV SCH (11:00)
[2023-01-20] MEDS: ceFAZolin 1 GM ADVAN 1 GM in NS 0.9% 50 ML 50 ML IVPB SCH ×2 (15:56→23:57)
[2023-01-20] MEDS: Magnesium Hydroxide LIQ 30 ML UDC PO SCH (21:47)
[2023-01-21 06:29] LABS: Hematocrit 38.6 % (35-45); Hemoglobin 13.2 g/dL (11.5-14.3); Mean Platelet Volume 7.7 fL (7.5-11.2); Platelet Count 190 10^3/uL (150-450)
[2023-01-21 06:49] LABS: Calcium 9.1 mg/dL (8.6-10.3); Creatinine, Serum 0.68 mg/dL (0.51-0.95)
[2023-01-21] MEDS: Magnesium Hydroxide LIQ 30 ML UDC PO SCH (07:51)
[2023-01-21] MEDS: ceFAZolin 1 GM ADVAN 1 GM in NS 0.9% 50 ML 50 ML IVPB SCH (07:53)
[2023-01-21] MEDS ORDERED: Vitamin THERAPEUTIC TAB PO SCH (09:00)
[2023-01-21 10:19] VITALS: BP 120/81
== END 2023-01-21 12:55 | disposition home or self-care (01) ==
LOC: AA 06:01 → INTOOBSV 06:01 → SSU 11:49
PROVIDERS: ADMIT Orthopaedic Surgery Adult Reconstructive Orthopaedic Surgery; ATTEND Orthopaedic Surgery Adult Reconstructive Orthopaedic Surgery